=== PATIENT | female | born 1950 | race American Indian/Alaskan Native ===

== ENCOUNTER 2020-07-09 21:46 | Inpatient (IN) | payer MEDICARE ==
[2020-07-09] MEDS ORDERED: SODIUM CHLORIDE 0.9% 1000 ML 1,000 ML IV ONE (21:59)
--- NOTE | 2020-07-09 22:00 | Emergency Department Report ---
ED Altered Mental Status HPI - General Chief Complaint: Altered Mental Status Stated Complaint: MH EVALUATION PUI?: No Time Seen by Provider: 07/09/20 21:53 Source: patient, EMS Mode of arrival: Stretcher Limitations: Altered Mental Status - History of Present Illness Initial Comments: Patient is a 69-year-old female that brought to the emergency room by EMS for altered mental status. Patient was found talking to a fence at a gas station. At this time patient is alert and oriented x1. Patient is confused on place, time, situation. Patient states she is not sure why she is in the hospital. Patient states that she is in [facility]. Patient states she is not sure how she got to [place]. Patient states she is not in [place]. Patient denies pain. Patient denies any physical complaints. Patient denies recent travel. Patient denies recent international travel. Patient denies exposure to the novel coronavirus. Patient denies sick contacts. Patient denies fever and chills. Patient denies cough. Patient denies diarrhea. Patient denies coming in contact with anybody with symptoms of the novel coronavirus. Report received from EMS. EMS states that the patient was at a local gas station and talking to a fence and the patient states she was talking to her daughter. The patient has a [place] license. The police department have been notified by EMS and made aware of the situation and where the patient is from. Past medical history is unknown. Complaint: altered mental status -: unknown Severity: severe Consistency of Symptoms: constant Associated Symptoms: denies other symptoms - Related Data Allergies Allergy/AdvReac Type Severity Reaction Status Date / Time No Known Allergies Allergy Unverified 07/09/20 22:06 ED Review of Systems ROS: Stated complaint: MH EVALUATION Other details as noted in HPI Comment: Unobtainable due to pts medical conditions ED Past Medical Hx - Past Medical History Previous Medical History?: No Additional medical history: Unknown past medical history ED Physical Exam - General Limitations: Altered Mental Status General appearance: alert, in no apparent distress - Head Head exam: Present: atraumatic, normocephalic - Eye Eye exam: Present: normal appearance - ENT ENT exam: Present: mucous membranes moist - Neck Neck exam: Present: normal inspection - Respiratory Respiratory exam: Present: normal lung sounds bilaterally. Absent: respiratory distress - Cardiovascular Cardiovascular Exam: Present: regular rate, normal rhythm. Absent: systolic murmur, diastolic murmur, rubs, gallop - GI/Abdominal GI/Abdominal exam: Present: soft, normal bowel sounds - Extremities Exam Extremities exam: Present: normal inspection - Back Exam Back exam: Present: normal inspection - Neurological Exam Neurological exam: Present: alert, altered, CN II-XII intact, normal gait. Absent: abnormal gait, motor sensory deficit - Psychiatric Psychiatric exam: Present: normal affect, normal mood - Skin Skin exam: Present: warm, dry, intact, normal color. Absent: rash - Assessment Assessment Interval: Baseline - Level of Consciousness 1a. Level of Consciousness: alert/keenly responsive - LOC Questions 1b. LOC Questions: answers 1 question correctly - LOC Command 1c. LOC Commands: performs tasks correctly - Best Gaze 2. Best Gaze: normal - Visual 3. Visual: no visual loss - Facial Palsy 4. Facial Palsy: normal symmetrical movement - Motor Arm 5a. Motor Arm Left: no drift 5b. Motor Arm Right: no drift - Motor Leg 6a. Motor Leg Left: no drift 6b. Motor Leg Right: no drift - Limb Ataxia 7. Limb Ataxia: absent - Sensory 8. Sensory: normal - Best Language 9. Best Language: no aphasia - Dysarthria 10. Dysarthria: normal - Extinction and Inattention 11. Extinction/Inattention: no abnormality - Scoring Total Score: 1 Stroke Severity: Minor Stroke ED Course Vital Signs 07/09/20 07/09/20 07/09/20 21:53 22:56 23:00 Temperature 97.5 F L Pulse Rate 82 73 Respiratory 18 11 L Rate Blood Pressure 101/76 110/82 103/61 O2 Sat by Pulse 97 100 Oximetry 07/09/20 07/09/20 07/09/20 23:15 23:30 23:45 Temperature Pulse Rate 63 63 79 Respiratory 12 12 11 L Rate Blood Pressure 103/61 136/76 136/76 O2 Sat by Pulse 100 100 100 Oximetry 07/10/20 07/10/20 07/10/20 00:00 00:15 00:30 Temperature Pulse Rate 62 68 69 Respiratory 10 L 10 L 11 L Rate Blood Pressure 137/78 137/78 143/83 O2 Sat by Pulse 100 100 100 Oximetry 07/10/20 07/10/20 07/10/20 00:45 01:00 01:15 Temperature Pulse Rate 81 74 75 Respiratory 8 L 24 12 Rate Blood Pressure 158/94 137/83 132/77 O2 Sat by Pulse 100 99 100 Oximetry 07/10/20 07/10/20 07/10/20 01:30 01:45 02:00 Temperature Pulse Rate 70 62 60 Respiratory 14 12 11 L Rate Blood Pressure 141/82 132/78 146/83 O2 Sat by Pulse 99 100 100 Oximetry 07/10/20 07/10/20 07/10/20 02:15 02:31 02:45 Temperature Pulse Rate 61 64 63 Respiratory 11 L 12 11 L Rate Blood Pressure 146/83 125/71 122/72 O2 Sat by Pulse 100 100 100 Oximetry 07/10/20 03:00 Temperature Pulse Rate 60 Respiratory 12 Rate Blood Pressure 147/70 O2 Sat by Pulse 100 Oximetry - Reevaluation(s) Reevaluation #1: Initial evaluation done. Patient is now on the traffic monitor specialist. Labs have been ordered. We will try to get a hold of family for more information. 07/09/20 21:59 Reevaluation #2: Police bedside. Police state they are trying to find family members. Police state if they find the family will send him to the hospital to be with the patient. 07/09/20 22:05 Reevaluation #3: I discussed case with granddaughter. Granddaughter states that patient has been more confused and agitated. Granddaughter states that the patient has also been confused about where she is. Granddaughter states that the patient left home 2 days ago and has been lost for these 2 days. 07/10/20 00:30 Reevaluation #4: I discussed all results with patient and granddaughter. I discussed plan of care with patient and granddaughter. Patient and granddaughter agrees with plan of care and admission. Patient to be admitted to the hospitalist service. 07/10/20 01:05 - Consultations Consultation #1: Mental health evaluation consult placed. 07/10/20 01:04 Consultation #2: Hospitalist consulted for admission. Hospitalist to admit patient. 07/10/20 01:04 - Lab Data Result diagrams: 07/09/20 22:28 07/09/20 22:28 Lab Results 07/09/20 07/09/20 07/09/20 Range/Units 22:28 22:28 22:28 WBC 6.5 (4.5-11.0) K/mm3 RBC 4.49 (3.65-5.03) M/mm3 Hgb 12.3 (10.1-14.3) gm/dl Hct 37.0 (30.3-42.9) % MCV 82 (79-97) fl MCH 28 (28-32) pg MCHC 33 (30-34) % RDW 14.3 (13.2-15.2) % Plt Count 229 (140-440) K/mm3 Lymph % (Auto) 32.8 (13.4-35.0) % Aurora % (Auto) 8.6 H (0.0-7.3) % Eos % (Auto) 0.3 (0.0-4.3) % Baso % (Auto) 1.1 (0.0-1.8) % Lymph # (Auto) 2.1 (1.2-5.4) K/mm3 Aurora # (Auto) 0.6 (0.0-0.8) K/mm3 Eos # (Auto) 0.0 (0.0-0.4) K/mm3 Baso # (Auto) 0.1 (0.0-0.1) K/mm3 Seg Neutrophils % 57.2 (40.0-70.0) % Seg Neutrophils # 3.7 (1.8-7.7) K/mm3 Sodium 140 (137-145) mmol/L Potassium 3.3 L (3.6-5.0) mmol/L Chloride 99.6 (98-107) mmol/L Carbon Dioxide 26 (22-30) mmol/L Anion Gap 18 mmol/L BUN 11 (7-17) mg/dL Creatinine 0.7 (0.6-1.2) mg/dL Estimated GFR > 60 ml/min BUN/Creatinine Ratio 16 % Glucose 99 (65-100) mg/dL Lactic Acid 1.50 (0.7-2.0) mmol/L Calcium 9.9 (8.4-10.2) mg/dL Total Bilirubin 0.50 (0.1-1.2) mg/dL AST 22 (5-40) units/L ALT 11 (7-56) units/L Alkaline Phosphatase 69 (35-129) units/L Ammonia (25-60) umol/L Total Creatine Kinase (30-135) units/L Troponin T (0.00-0.029) ng/mL Total Protein 8.4 H (6.3-8.2) g/dL Albumin 4.6 (3.9-5) g/dL Albumin/Globulin Ratio 1.2 % Urine Color (Yellow) Urine Turbidity (Clear) Urine pH (5.0-7.0) Ur Specific [place] (1.003-1.030) Urine Protein (Negative) mg/dL Urine Glucose (UA) (Negative) mg/dL Urine Ketones (Negative) mg/dL Urine Blood (Negative) Urine Nitrite (Negative) Urine Bilirubin (Negative) Urine Urobilinogen (<2.0) mg/dL Ur Leukocyte Esterase (Negative) Urine WBC (Auto) (0.0-6.0) /HPF Urine RBC (Auto) (0.0-6.0) /HPF U Epithel Cells (Auto) (0-13.0) /HPF Urine Bacteria (Auto) (Negative) /HPF Urine Mucus /HPF Salicylates (2.8-20.0) mg/dL Urine Opiates Screen Urine Methadone Screen Acetaminophen (10.0-30.0) ug/mL Ur Barbiturates Screen Ur Phencyclidine Scrn Ur Amphetamines Screen U Benzodiazepines Scrn Urine Cocaine Screen U Marijuana (THC) Screen Drugs of Abuse Note Plasma/Serum Alcohol (0-0.07) % 07/09/20 07/09/20 07/09/20 Range/Units 22:28 22:28 22:28 WBC (4.5-11.0) K/mm3 RBC (3.65-5.03) M/mm3 Hgb (10.1-14.3) gm/dl Hct (30.3-42.9) % MCV (79-97) fl MCH (28-32) pg MCHC (30-34) % RDW (13.2-15.2) % Plt Count (140-440) K/mm3 Lymph % (Auto) (13.4-35.0) % Aurora % (Auto) (0.0-7.3) % Eos % (Auto) (0.0-4.3) % Baso % (Auto) (0.0-1.8) % Lymph # (Auto) (1.2-5.4) K/mm3 Aurora # (Auto) (0.0-0.8) K/mm3 Eos # (Auto) (0.0-0.4) K/mm3 Baso # (Auto) (0.0-0.1) K/mm3 Seg Neutrophils % (40.0-70.0) % Seg Neutrophils # (1.8-7.7) K/mm3 Sodium (137-145) mmol/L Potassium (3.6-5.0) mmol/L Chloride (98-107) mmol/L Carbon Dioxide (22-30) mmol/L Anion Gap mmol/L BUN (7-17) mg/dL Creatinine (0.6-1.2) mg/dL Estimated GFR ml/min BUN/Creatinine Ratio % Glucose (65-100) mg/dL Lactic Acid (0.7-2.0) mmol/L Calcium (8.4-10.2) mg/dL Total Bilirubin (0.1-1.2) mg/dL AST (5-40) units/L ALT (7-56) units/L Alkaline Phosphatase (35-129) units/L Ammonia 19.0 L (25-60) umol/L Total Creatine Kinase 269 H (30-135) units/L Troponin T < 0.010 (0.00-0.029) ng/mL Total Protein (6.3-8.2) g/dL Albumin (3.9-5) g/dL Albumin/Globulin Ratio % Urine Color (Yellow) Urine Turbidity (Clear) Urine pH (5.0-7.0) Ur Specific [place] (1.003-1.030) Urine Protein (Negative) mg/dL Urine Glucose (UA) (Negative) mg/dL Urine Ketones (Negative) mg/dL Urine Blood (Negative) Urine Nitrite (Negative) Urine Bilirubin (Negative) Urine Urobilinogen (<2.0) mg/dL Ur Leukocyte Esterase (Negative) Urine WBC (Auto) (0.0-6.0) /HPF Urine RBC (Auto) (0.0-6.0) /HPF U Epithel Cells (Auto) (0-13.0) /HPF Urine Bacteria (Auto) (Negative) /HPF Urine Mucus /HPF Salicylates (2.8-20.0) mg/dL Urine Opiates Screen Urine Methadone Screen Acetaminophen (10.0-30.0) ug/mL Ur Barbiturates Screen Ur Phencyclidine Scrn Ur Amphetamines Screen U Benzodiazepines Scrn Urine Cocaine Screen U Marijuana (THC) Screen Drugs of Abuse Note Plasma/Serum Alcohol < 0.01 (0-0.07) % 07/09/20 07/09/20 07/09/20 Range/Units 22:28 22:28 23:00 WBC (4.5-11.0) K/mm3 RBC (3.65-5.03) M/mm3 Hgb (10.1-14.3) gm/dl Hct (30.3-42.9) % MCV (79-97) fl MCH (28-32) pg MCHC (30-34) % RDW (13.2-15.2) % Plt Count (140-440) K/mm3 Lymph % (Auto) (13.4-35.0) % Aurora % (Auto) (0.0-7.3) % Eos % (Auto) (0.0-4.3) % Baso % (Auto) (0.0-1.8) % Lymph # (Auto) (1.2-5.4) K/mm3 Aurora # (Auto) (0.0-0.8) K/mm3 Eos # (Auto) (0.0-0.4) K/mm3 Baso # (Auto) (0.0-0.1) K/mm3 Seg Neutrophils % (40.0-70.0) % Seg Neutrophils # (1.8-7.7) K/mm3 Sodium (137-145) mmol/L Potassium (3.6-5.0) mmol/L Chloride (98-107) mmol/L Carbon Dioxide (22-30) mmol/L Anion Gap mmol/L BUN (7-17) mg/dL Creatinine (0.6-1.2) mg/dL Estimated GFR ml/min BUN/Creatinine Ratio % Glucose (65-100) mg/dL Lactic Acid (0.7-2.0) mmol/L Calcium (8.4-10.2) mg/dL Total Bilirubin (0.1-1.2) mg/dL AST (5-40) units/L ALT (7-56) units/L Alkaline Phosphatase (35-129) units/L Ammonia (25-60) umol/L Total Creatine Kinase (30-135) units/L Troponin T (0.00-0.029) ng/mL Total Protein (6.3-8.2) g/dL Albumin (3.9-5) g/dL Albumin/Globulin Ratio % Urine Color Yellow (Yellow) Urine Turbidity Slightly-cloudy (Clear) Urine pH 5.0 (5.0-7.0) Ur Specific [place] 1.021 (1.003-1.030) Urine Protein 30 mg/dl (Negative) mg/dL Urine Glucose (UA) Neg (Negative) mg/dL Urine Ketones 20 (Negative) mg/dL Urine Blood Sm (Negative) Urine Nitrite Neg (Negative) Urine Bilirubin Neg (Negative) Urine Urobilinogen < 2.0 (<2.0) mg/dL Ur Leukocyte Esterase Sm (Negative) Urine WBC (Auto) 8.0 H (0.0-6.0) /HPF Urine RBC (Auto) 3.0 (0.0-6.0) /HPF U Epithel Cells (Auto) 2.0 (0-13.0) /HPF Urine Bacteria (Auto) 2+ (Negative) /HPF Urine Mucus 2+ /HPF Salicylates < 0.3 L (2.8-20.0) mg/dL Urine Opiates Screen Urine Methadone Screen Acetaminophen 5.0 L (10.0-30.0) ug/mL Ur Barbiturates Screen Ur Phencyclidine Scrn Ur Amphetamines Screen U Benzodiazepines Scrn Urine Cocaine Screen U Marijuana (THC) Screen Drugs of Abuse Note Plasma/Serum Alcohol (0-0.07) % 07/09/20 Range/Units 23:00 WBC (4.5-11.0) K/mm3 RBC (3.65-5.03) M/mm3 Hgb (10.1-14.3) gm/dl Hct (30.3-42.9) % MCV (79-97) fl MCH (28-32) pg MCHC (30-34) % RDW (13.2-15.2) % Plt Count (140-440) K/mm3 Lymph % (Auto) (13.4-35.0) % Aurora % (Auto) (0.0-7.3) % Eos % (Auto) (0.0-4.3) % Baso % (Auto) (0.0-1.8) % Lymph # (Auto) (1.2-5.4) K/mm3 Aurora # (Auto) (0.0-0.8) K/mm3 Eos # (Auto) (0.0-0.4) K/mm3 Baso # (Auto) (0.0-0.1) K/mm3 Seg Neutrophils % (40.0-70.0) % Seg Neutrophils # (1.8-7.7) K/mm3 Sodium (137-145) mmol/L Potassium (3.6-5.0) mmol/L Chloride (98-107) mmol/L Carbon Dioxide (22-30) mmol/L Anion Gap mmol/L BUN (7-17) mg/dL Creatinine (0.6-1.2) mg/dL Estimated GFR ml/min BUN/Creatinine Ratio % Glucose (65-100) mg/dL Lactic Acid (0.7-2.0) mmol/L Calcium (8.4-10.2) mg/dL Total Bilirubin (0.1-1.2) mg/dL AST (5-40) units/L ALT (7-56) units/L Alkaline Phosphatase (35-129) units/L Ammonia (25-60) umol/L Total Creatine Kinase (30-135) units/L Troponin T (0.00-0.029) ng/mL Total Protein (6.3-8.2) g/dL Albumin (3.9-5) g/dL Albumin/Globulin Ratio % Urine Color (Yellow) Urine Turbidity (Clear) Urine pH (5.0-7.0) Ur Specific [place] (1.003-1.030) Urine Protein (Negative) mg/dL Urine Glucose (UA) (Negative) mg/dL Urine Ketones (Negative) mg/dL Urine Blood (Negative) Urine Nitrite (Negative) Urine Bilirubin (Negative) Urine Urobilinogen (<2.0) mg/dL Ur Leukocyte Esterase (Negative) Urine WBC (Auto) (0.0-6.0) /HPF Urine RBC (Auto) (0.0-6.0) /HPF U Epithel Cells (Auto) (0-13.0) /HPF Urine Bacteria (Auto) (Negative) /HPF Urine Mucus /HPF Salicylates (2.8-20.0) mg/dL Urine Opiates Screen Presumptive negative Urine Methadone Screen Presumptive negative Acetaminophen (10.0-30.0) ug/mL Ur Barbiturates Screen Presumptive negative Ur Phencyclidine Scrn Presumptive negative Ur Amphetamines Screen Presumptive negative U Benzodiazepines Scrn Presumptive negative Urine Cocaine Screen Presumptive negative U Marijuana (THC) Screen Presumptive negative Drugs of Abuse Note Disclamer Plasma/Serum Alcohol (0-0.07) % - EKG Data -: EKG Interpreted by Me EKG shows normal: sinus rhythm, axis, intervals, QRS complexes, ST-T waves Rate: normal - Radiology Data Radiology results: report reviewed, image reviewed interpreted by me: Chest x-ray: No pneumonia, no pneumothorax, no foreign body, no osseous findings, no acute findings CT head/brain wo con INDICATION: Altered Mental Status. TECHNIQUE: Routine CT head without contrast. All CT scans at this location are performed using CT dose reduction for ALARA by means of automated exposure control. COMPARISON: None. FINDINGS: BRAIN / INTRACRANIAL CONTENTS: No acute hemorrhage, mass effect, midline shift, or hydrocephalus. No appreciable acute large territorial or lacunar infarct. No chronic infarct. Age-commensurate ventricular and cisternal/sulcal prominence. ORBITS: No significant abnormality of visualized orbits. SINUSES / MASTOIDS: No significant abnormality of visualized sinuses and mastoid air cells. ADDITIONAL FINDINGS: None. IMPRESSION: 1. No acute intracranial abnormality. - Medical Decision Making Patient is a 69-year-old female that presents emergency room for altered mental status and wandering. Patient was brought in by EMS. The police were notified and the police were able to identify family. Family came to the hospital. Patient's family states that the patient has been gone for 2 days and had increased confusion and agitation prior to leaving the house. Patient was found by EMS talking toa fence. patient is alert and oriented x1. Patient had labs done which were consistent with an elevated CK and a UTI. Patient given fluids and antibiotics. Patient resting comfortably. Patient admitted to the hospital service for further evaluation treatment. Patient will most likely need a general psych consult. - Differential Diagnosis Dementia, confusion, altered mental status, UTI, dehydration Critical Care Time: Yes Critical care time in (mins) excluding proc time.: 35 Critical care attestation.: If time is entered above; I have spent that time in minutes in the direct care of this critically ill patient, excluding procedure time. Critical Care Time: 35 minutes ED Disposition Clinical Impression: Dehydration, Elevated CK, Confusion UTI (urinary tract infection) Qualifiers: Urinary tract infection type: acute cystitis Hematuria presence: with hematuria Qualified Code(s): N30.01 - Acute cystitis with hematuria Altered mental state Qualifiers: Altered mental status type: unspecified Qualified Code(s): R41.82 - Altered mental status, unspecified Disposition: 09 OP ADMIT IP TO THIS HOSP Is pt being admited?: Yes Does the pt Need Aspirin: No Condition: Critical Time of Disposition: 00:59
--- NOTE | 2020-07-09 22:50 | XRay Report ---
CHEST 1 VIEW 07/09/2020 9:40 PM INDICATION / CLINICAL INFORMATION: Altered Mental Status. COMPARISON: None available. FINDINGS: SUPPORT DEVICES: None. HEART / MEDIASTINUM: No significant abnormality. LUNGS / PLEURA: No significant pulmonary or pleural abnormality. No pneumothorax. ADDITIONAL FINDINGS: No significant additional findings. IMPRESSION: 1. No acute findings. Signer Name: Boston Bermudez MD Signed: 07/09/2020 10:46 PM Workstation Name: [id number]
[2020-07-09 22:51] LABS: Basophils # (Auto) 0.1 K/mm3 (0.0-0.1); Basophils % (Auto) 1.1 % (0.0-1.8); Eosinophils % (Auto) 0.3 % (0.0-4.3); Hemoglobin 12.3 gm/dl (10.1-14.3); Lymphocytes # (Auto) 2.1 K/mm3 (1.2-5.4); Lymphocytes % (Auto) 32.8 % (13.4-35.0); Mean Corpuscular HGB Conc 33 % (30-34); Mean Corpuscular Volume 82 fl (79-97); Monocytes # (Auto) 0.6 K/mm3 (0.0-0.8); Monocytes % (Auto) 8.6 % (0.0-7.3); Platelet Count 229 K/mm3 (140-440); Red Blood Count 4.49 M/mm3 (3.65-5.03); Red Cell Distribution Width 14.3 % (13.2-15.2)
[2020-07-09 23:12] LABS: Alanine Aminotransferase 11 units/L (7-56); Albumin 4.6 g/dL (3.9-5); Blood Urea Nitrogen 11 mg/dL (7-17); Calcium 9.9 mg/dL (8.4-10.2); Hemolysis Index 6
[2020-07-09 23:19] LABS: Bacteria,Urine 2+ /HPF (Negative); Bilirubin,Urine NEG (Negative); Blood,Urine SM (Negative); Color,Urine Yellow (Yellow); Mucus,Urine 2+ /HPF; Urobilinogen,Urine < 2.0 mg/dL (<2.0)
--- NOTE | 2020-07-09 23:19 | Cat Scan Report ---
CT head/brain wo con INDICATION: Altered Mental Status. TECHNIQUE: Routine CT head without contrast. All CT scans at this location are performed using CT dos e reduction for ALARA by means of automated exposure control. COMPARISON: None. FINDINGS: BRAIN / INTRACRANIAL CONTENTS: No acute hemorrhage, mass effect, midline shift, or hydrocephalus. No appreciable acute large territorial or lacunar infarct. No chronic infarct. Age-commensurate ventricu lar and cisternal/sulcal prominence. ORBITS: No significant abnormality of visualized orbits. SINUSES / MASTOIDS: No significant abnormality of visualized sinuses and mastoid air cells. ADDITIONAL FINDINGS: None. IMPRESSION: 1. No acute intracranial abnormality. Signer Name: Boston Bermudez MD Signed: 07/09/2020 11:15 PM Workstation Name: [id number]
[2020-07-09 23:20] LABS: BUN/Creatinine Ratio 16
[2020-07-09 23:25] LABS: Amphetamine Screen,Urine PRESUMPTIVE NEGATIVE; Benzodiazepines Screen,Urine PRESUMPTIVE NEGATIVE; Cannabinoid Screen,Urine PRESUMPTIVE NEGATIVE; Cocaine Screen,Urine PRESUMPTIVE NEGATIVE; Methadone Screen,Urine PRESUMPTIVE NEGATIVE; Opiate Screen,Urine PRESUMPTIVE NEGATIVE
[2020-07-10] MEDS ORDERED: cefTRIAXone/NS 1 GM/50 ML 1 GM/50 ML BAG IV ONE ×2 (00:57→02:17)
[2020-07-10] MEDS ORDERED: SODIUM CHLORIDE 0.9% 1000 ML 1,000 ML IV ONE (00:58)
[2020-07-10] MEDS ORDERED: ACETAMINOPHEN 325 MG TAB PO PRN (01:36)
[2020-07-10] MEDS ORDERED: MAGNESIUM HYDROXIDE (MOM) ORAL LIQD UDC PO PRN (01:36)
[2020-07-10] MEDS ORDERED: ONDANSETRON 4 MG/2 ML INJ IV PRN (01:36)
[2020-07-10] MEDS ORDERED: POTASSIUM CHLORIDE 10 MEQ 10 MEQ/100 ML BAG IV ONE ×2 (01:44→03:27)
--- NOTE | 2020-07-10 01:45 | History and Physical Report ---
History of Present Illness Date of examination: 07/10/20 Date of admission: 07/10/2020 Chief complaint: Altered Mental Status History of present illness: 69-year-old -[place] female brought to the emergency room today by EMS for altered mental status. Patient was said to have been found at a gas station just talking to the fence. Patient could not give any good history as she is only alert and oriented x1. She denies any fever or chills, no chest pain or shortness of breath, no nausea vomiting and no diarrhea. She believes that she is in [place] and not sure of how she got to [place]. She denies any complaints today. Evaluation in the emergency room reveals slightly elevated CK level, mild hypokalemia, urinary tract infection and dehydration. Patient has been placed on empiric IV antibiotics for UTI and also commenced on IV fluid for dehydration. CT scan of the head is unremarkable. Past History Past Medical History: other (Unkown) Past Surgical History: Other (Unkown) Social history: other (Unkown) Family history: other (Unkown) Medications and Allergies Allergies Allergy/AdvReac Type Severity Reaction Status Date / Time No Known Allergies Allergy Unverified 07/09/20 22:06 Active Meds: Active Medications Sodium Chloride (Nacl 0.9% 1000 Ml) 1,000 mls @ 250 mls/hr IV ONCE ONE Stop: 07/10/20 04:57 Review of Systems ROS unobtainable: due to mental status Exam - Constitutional Vitals: Temp Pulse Resp BP Pulse Ox 97.5 F L 69 11 L 143/83 100 07/09/20 21:53 07/10/20 00:30 07/10/20 00:30 07/10/20 00:30 07/10/20 00:30 General appearance: Present: no acute distress, well-nourished, other (Dry oral mucosa) - EENT Eyes: Present: PERRL, EOM intact. Absent: scleral icterus ENT: hearing intact, clear oral mucosa, dentition normal - Neck Neck: Present: supple, normal ROM - Respiratory Respiratory effort: normal Respiratory: bilateral: CTA - Cardiovascular Rhythm: regular Heart Sounds: Present: S1 & S2. Absent: gallop, systolic murmur, diastolic mur mur, rub - Extremities Extremities: no ischemia, pulses intact, pulses symmetrical, No edema, Full ROM Peripheral Pulses: within normal limits - Abdominal General gastrointestinal: Present: soft, non-tender, non-distended, normal bowel sounds. Absent: mass - Integumentary Integumentary: Present: clear, warm, dry - Musculoskeletal Musculoskeletal: strength equal bilaterally - Psychiatric Psychiatric: appropriate mood/affect, cooperative, other (Confused) - Neurologic Neurologic: CNII-XII intact, no focal deficits, moves all extremities HEART Score - HEART Score Troponin: Troponin T < 0.010 ng/mL (0.00-0.029) 07/09/20: Results - Labs CBC & Chem 7: 07/09/20 22:28 07/09/20 22: Labs: Abnormal lab results 07/09/20 07/09/20 07/09/20 Range/Units 22:28 22:28 22:28 [place] % (Auto) 8.6 H (0.0-7.3) % Potassium 3.3 L (3.6-5.0) mmol/L Ammonia 19.0 L (25-60) umol/L Total Creatine Kinase (30-135) units/L Total Protein 8.4 H (6.3-8.2) g/dL Urine WBC (Auto) (0.0-6.0) /HPF Salicylates (2.8-20.0) mg/dL Acetaminophen (10.0-30.0) ug/mL 07/09/20 07/09/20 07/09/20 Range/Units 22:28 22:28 22:28 [place] % (Auto) (0.0-7.3) % Potassium (3.6-5.0) mmol/L Ammonia (25-60) umol/L Total Creatine Kinase 269 H (30-135) units/L Total Protein (6.3-8.2) g/dL Urine WBC (Auto) (0.0-6.0) /HPF Salicylates < 0.3 L (2.8-20.0) mg/dL Acetaminophen 5.0 L (10.0-30.0) ug/mL 07/09/20 Range/Units 23:00 [place] % (Auto) (0.0-7.3) % Potassium (3.6-5.0) mmol/L Ammonia (25-60) umol/L Total Creatine Kinase (30-135) units/L Total Protein (6.3-8.2) g/dL Urine WBC (Auto) 8.0 H (0.0-6.0) /HPF Salicylates (2.8-20.0) mg/dL Acetaminophen (10.0-30.0) ug/mL Assessment and Plan - Patient Problems (1) Altered mental state Current Visit: Yes Status: Acute Qualifiers: Altered mental status type: unspecified Qualified Code(s): R41.82 - Altered mental status, unspecified Plan to address problem: Etiology is unclear. Possibly secondary to the underlying dehydration and UTI. We will monitor mental status. (2) Dehydration Current Visit: Yes Status: Acute Plan to address problem: We will continue on IV fluid and monitor BUN and creatinine. (3) Elevated CK Current Visit: Yes Status: Acute Plan to address problem: We will continue IV fluid and continue to monitor creatinine kinase. (4) UTI (urinary tract infection) Current Visit: Yes Status: Acute Qualifiers: Urinary tract infection type: acute cystitis Hematuria presence: with hematuria Qualified Code(s): N30.01 - Acute cystitis with hematuria Plan to address problem: Patient placed on IV Rocephin (5) DVT prophylaxis Current Visit: Yes Status: Acute Plan to address problem: Patient placed on subcutaneous heparin. (6) Full code status Current Visit: Yes Status: Acute
[2020-07-10] MEDS ORDERED: SODIUM CHLORIDE 0.9% 1000 ML 1,000 ML ONE (02:44)
[2020-07-10] MEDS: HEPARIN 5,000 UNIT/1 ML VIAL SUB-Q SCH ×3 (06:28→22:04)
[2020-07-10] MEDS: cefTRIAXone/NS 1 GM/50 ML 1 GM/50 ML BAG IV SCH (10:29)
[2020-07-10] MEDS: SODIUM CHLORIDE 0.9% 1000 ML 1,000 ML IV SCH ×2 (10:29→19:25)
--- NOTE | 2020-07-10 14:25 | Event Note ---
Date: 07/10/20 Patient seen and examined, vitals noted 69-year-old -[place] female brought to the emergency room by EMS for altered mental status. Evaluation in the emergency room reveals slightly elevated CK level, mild hypokalemia, urinary tract infection and dehydration. Patient has been placed on empiric IV antibiotics for UTI and also commenced on IV fluid for dehydration. CT scan of the head is unremarkable. will monitor clinically, psych consult has placed if clinically stable, possible d/c tomorrow
[2020-07-11 05:11] LABS: Basophils % (Auto) 0.5 % (0.0-1.8); Eosinophils # (Auto) 0.2 K/mm3 (0.0-0.4); Eosinophils % (Auto) 2.7 % (0.0-4.3); Hematocrit 34.5 % (30.3-42.9); Hemoglobin 11.3 gm/dl (10.1-14.3); Lymphocytes # (Auto) 3.2 K/mm3 (1.2-5.4); Mean Corpuscular HGB Conc 33 % (30-34); Mean Corpuscular Volume 83 fl (79-97); Monocytes # (Auto) 0.3 K/mm3 (0.0-0.8); Monocytes % (Auto) 5.7 % (0.0-7.3); Red Blood Count 4.16 M/mm3 (3.65-5.03); Red Cell Distribution Width 14.5 % (13.2-15.2)
[2020-07-11 05:16] LABS: INR 0.94 (0.87-1.13); Platelet Count 133 K/mm3 (140-440)
[2020-07-11] MEDS: HEPARIN 5,000 UNIT/1 ML VIAL SUB-Q SCH ×4 (05:24→22:53)
[2020-07-11] MEDS: SODIUM CHLORIDE 0.9% 1000 ML 1,000 ML IV SCH (05:28)
[2020-07-11 05:30] LABS: Blood Urea Nitrogen 10 mg/dL (7-17); Calcium 8.4 mg/dL (8.4-10.2); Hemolysis Index 30
[2020-07-11 05:34] LABS: BUN/Creatinine Ratio 20
[2020-07-11] MEDS: cefTRIAXone/NS 1 GM/50 ML 1 GM/50 ML BAG IV SCH (09:31)
--- NOTE | 2020-07-11 12:21 | Consultation ---
History of Present Illness - Reason for Consult Consult date: 07/11/20 Reason for consult: MHE Requesting physician: EDYTA BYRNES - Chief Complaint Chief complaint: Altered Mental Status - History of Present Psychiatric Illness Per ED Provider: Patient is a 69-year-old female that brought to the emergency room by EMS for altered mental status. Patient was found talking to a fence at a gas station. At this time patient is alert and oriented x1. Patient is confused on place, time, situation. Patient states she is not sure why she is in the hospital. Patient states that she is in [facility]. Patient states she is not sure how she got to [place]. Patient states she is not in [place]. Patient denies pain. Patient denies any physical complaints. Patient denies recent travel. Patient denies recent international travel. Patient denies exposure to the novel coronavirus. Patient denies sick contacts. Patient denies fever and chills. Patient denies cough. Patient denies diarrhea. Patient denies coming in contact with anybody with symptoms of the novel coronavirus. Report received from EMS. EMS states that the patient was at a local gas station and talking to a fence and the patient states she was talking to her daughter. The patient has a [place] license. The police department have been notified by EMS and made aware of the situation and where the patient is from. Past medical history is unknown. PSYCH HPI Patient is a 69 year old Female who presented to the ED for AMS. Patient says she does not know where she is but thinks its a hospital, says she does not have psychiatric diagnosis, but the only one she has was just so she could get money for disability and she laughed, saying she wont tell me so I dont get her arrested. Patient then picked up the TV remote speaker, which was producing TV audio and tried talking to it like she was receiving a phone, and even talked back to the person not knowing its a TV speaker. Patient says she is in the hospital because of her head and kept laughing PAST PSYCHIATRIC HISTORY Diagnoses: Suicide attempts or Self-harm behavior: Prior psychiatric hospitalizations: Substance Abuse history: Previous psychiatric medications tried: Outpatient treatment: PAST MEDICAL HISTORY: na Family Psychiatric History: None reported or documented SOCIAL HISTORY Marital Status: Single Living Arrangements: with grand daughter Employment Status: on SSI Access to guns/weapons: none reported Education: High school History of Abuse: none reported Legal History: reported REVIEW OF SYSTEMS ROS cannot be reliably obtained from the patient due to her confusion and somnolence. MENTAL STATUS EXAMINATION General Appearance and Behavior: Age appropriate, good hygiene, wearing appropriate clothes, lying in bed, good eye contact, cooperative polite with questioning. Cooperation: Participating but Withdrawn, Psychomotor Behavior: unremarkable and within normal limits Mood: Good, Affect and affective range: congruent with mood Thought Process: e, Illogical, and Loose associations Thought Content: Illogical, Speech: Normal volume, Regular rate and rhythm Intellectual Functioning: fair Suicidal Ideation: Denies SI Homicidal Ideation: Denies HI/ Impulse Control: Impaired Insight and Judgment: Normal insight and judgment, Limited insight and judgment, Impaired Memory: impaired Attention: d Divided attention impaired Orientation: Alert, confused, and demented Diagnoses: Assessment and Plan - Psychiatric problem (1) Dementia with behavioral disturbance Current Visit: Yes Status: Acute Treatment Plan I spoke to patients grand daughter, she reports patient was recently diagnozed w jossy Alzheimers by her doctor, medication was just started last week before she wandered away. MEDICATIONS: Started on Medications Risks, benefits and alternatives of medications discussed with the patient, questions answered and consent obtained from patient. PSYCHOTHERAPY: Supportive psychotherapy provided MEDICAL: Per primary team DELIRIUM PRECAUTIONS: Please re-orient patient frequently, keep lights on during the day, and minimize benzodiazepines and opiates as these medications could worsen patient's confusion. 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 Will Need covid testing LEGAL STATUS: 1013 FOLLOW-UP: Will follow Thank you for the consult. Please contact with any questions and/or concerns. Medications and Allergies Allergies Allergy/AdvReac Type Severity Reaction Status Date / Time No Known Allergies Allergy Unverified 07/09/20 22:06 Active Meds: Active Medications Acetaminophen (Tylenol) 650 mg PO Q4H PRN PRN Reason: Pain MILD(1-3)/Fever >100.5/CARDOZO Heparin Sodium (Porcine) (Heparin) 5,000 unit SUB-Q Q8HR CLAU Last Admin: 07/11/20 05:29 Dose: Not Given Documented by: Sodium Chloride (Nacl 0.9% 1000 Ml) 1,000 mls @ 125 mls/hr IV DIRECT CLAU Last Admin: 07/11/20 05:28 Dose: 125 mls/hr Documented by: Ceftriaxone Sodium (Rocephin/Ns 1 Gm/50 Ml) 1 gm in 50 mls @ 100 mls/hr IV Q24HR [facility]; Protocol Last Admin: 07/11/20 09:31 Dose: 100 mls/hr Documented by: Magnesium Hydroxide (Milk Of Magnesia) 30 ml PO Q4H PRN PRN Reason: Constipation Ondansetron HCl (Zofran) 4 mg IV Q8H PRN PRN Reason: Nausea And Vomiting Sodium Chloride (Sodium Chloride Flush Syringe 10 Ml) 10 ml IV BID [facility] Last Admin: 07/11/20 09:32 Dose: Not Given Documented by: Sodium Chloride (Sodium Chloride Flush Syringe 10 Ml) 10 ml IV PRN PRN PRN Reason: LINE FLUSH Mental Status Exam - Vital signs Last Vital Signs Temp 98.3 F 07/11/20 05:18 Pulse 64 07/11/20 05:18 Resp 18 07/11/20 05:18 BP 104/72 07/11/20 05:18 Pulse Ox 99 07/11/20 05:18 Results Result Diagrams: 07/11/20 04:18 07/11/20 04:18 Abnormal lab results 07/11/20 07/11/20 Range/Units 04:18 04:18 MCH 27 L (28-32) pg Plt Count 133 L (140-440) K/mm3 Lymph % (Auto) 55.0 H (13.4-35.0) % Seg Neutrophils % 36.1 L (40.0-70.0) % Chloride 111.3 H (98-107) mmol/L Creatinine 0.5 L (0.6-1.2) mg/dL All other labs normal. Assessment and Plan - Psychiatric problem (1) Dementia with behavioral disturbance Current Visit: Yes Status: Acute
[2020-07-11] MEDS: risperiDONE 0.25 MG TAB PO SCH ×2 (14:50→22:53)
--- NOTE | 2020-07-11 18:44 | Progress Note ---
Assessment and Plan -- Acute metabolic encephalopathy Possibly secondary to the underlying dehydration and UTI with dementia. We will monitor mental status. -- Dehydration We will continue on IV fluid and monitor BUN and creatinine. -- Elevated CPK, continue IV fluid and CPK trending down --hypokalemia, resolved - UTI (urinary tract infection) Patient placed on IV Rocephin --Dementia with behavioral disturbance Psych consulted and recommended inpt psych admission sitter in place -- DVT prophylaxis Patient placed on subcutaneous heparin. -- Full code status Brief History: 69-year-old -[place] female brought to the emergency room by EMS for altered mental status. Evaluation in the emergency room reveals slightly elevated CK level, mild hypokalemia, urinary tract infection and dehydration. Patient has been placed on empiric IV antibiotics for UTI and also commenced on IV fluid for dehydration. CT scan of the head is unremarkable. will monitor clinically, psych consult has placed. 07/11: clinically stable. Psych recommended for inpt psych admission. Need covid testing for inpt psych admission Subjective Date of service: 07/11/20 Interval history: Patient seen and examined. Medical records and medication list reviewed. No acute event overnight noted by the RN. Patient denies any chest pain or difficulty breathing. Patient is tolerating diet. Discussed plan of care at bedside with patient. Objective - Constitutional Vitals: Vital Signs - 12hr 07/11/20 07/11/20 10:37 16:25 Temperature 98.8 F 98.9 F Pulse Rate 67 60 Respiratory 16 18 Rate Blood Pressure 117/50 106/62 O2 Sat by Pulse 100 98 Oximetry General appearance: Present: no acute distress, well-nourished - EENT Eyes: PERRL, EOM intact ENT: hearing intact, clear oral mucosa Ears: bilateral: normal - Neck Neck: supple, normal ROM - Respiratory Respiratory effort: normal Respiratory: bilateral: CTA - Cardiovascular Rhythm: regular Heart Sounds: Present: S1 & S2. Absent: gallop, rub Extremities: pulses intact, No edema, normal color, Full ROM - Gastrointestinal General gastrointestinal: Present: soft, non-tender, non-distended, normal bowel sounds - Integumentary Integumentary: clear, warm, dry - Musculoskeletal Musculoskeletal: 1, strength equal bilaterally - Neurologic Neurologic: moves all extremities - Psychiatric Psychiatric: memory intact, appropriate mood/affect, intact judgment & insight - Labs CBC & Chem 7: 07/11/20 04:18 07/11/20 04:18 Labs: Abnormal lab results 07/11/20 07/11/20 Range/Units 04:18 04:18 MCH 27 L (28-32) pg Plt Count 133 L (140-440) K/mm3 Lymph % (Auto) 55.0 H (13.4-35.0) % Seg Neutrophils % 36.1 L (40.0-70.0) % Chloride 111.3 H (98-107) mmol/L Creatinine 0.5 L (0.6-1.2) mg/dL - Imaging and cardiology Chest x-ray: report reviewed CT Scan - head: report reviewed HEART Score - HEART Score Troponin: Troponin T < 0.010 ng/mL (0.00-0.029) 07/09/20 22:28
[2020-07-11] MEDS: LORazepam 2 MG/ML VIAL IM PRN ×3 (21:13→22:58)
[2020-07-11] MEDS ORDERED: MIRTAZAPINE 15 MG TAB PO SCH (22:00)
[2020-07-11] MEDS ORDERED: DONEPEZIL 5 MG TAB PO SCH (22:00)
[2020-07-12] MEDS: HEPARIN 5,000 UNIT/1 ML VIAL SUB-Q SCH ×2 (06:25→14:21)
[2020-07-12] MEDS ORDERED: risperiDONE 0.25 MG TAB PO SCH (11:07)
--- NOTE | 2020-07-12 11:10 | Progress Note ---
Subjective - Reason for Consult Consult date: 07/12/20 Reason for consult: MHE Requesting physician: EDYTA BYRNES - Chief Complaint Chief complaint: Psych Progress Patient in deep sleep, was recently medicated due to combative behavior per bedside sitter REVIEW OF SYSTEMS ROS cannot be reliably obtained from the patient due to her confusion and somnolence. MENTAL STATUS EXAMINATION General Appearance and Behavior: Age appropriate, good hygiene, wearing appropriate clothes, lying in bed, good eye contact, cooperative polite with questioning. Cooperation: Participating but Withdrawn, Psychomotor Behavior: unremarkable and within normal limits Mood: Good, Affect and affective range: congruent with mood Thought Process: e, Illogical, and Loose associations Thought Content: Illogical, Speech: Normal volume, Regular rate and rhythm Intellectual Functioning: fair Suicidal Ideation: Denies SI Homicidal Ideation: Denies HI/ Impulse Control: Impaired Insight and Judgment: Impaired Memory: impaired Attention: d Divided attention impaired Orientation: Alert, confused, and demented Diagnoses: Assessment and Plan - Psychiatric problem (1) Dementia with behavioral disturbance Current Visit: Yes Status: Acute Treatment Plan I spoke to patients grand daughter, she reports patient was recently diagnozed with Alzheimers by her doctor, medication was just started last week before she wandered away. MEDICATIONS: Started on Medications Risks, benefits and alternatives of medications discussed with the patient, questions answered and consent obtained from patient. PSYCHOTHERAPY: Supportive psychotherapy provided MEDICAL: Per primary team DELIRIUM PRECAUTIONS: Please re-orient patient frequently, keep lights on during the day, and minimize benzodiazepines and opiates as these medications could worsen patient's confusion. 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 Will Need covid testing LEGAL STATUS: 1013 FOLLOW-UP: Will follow Thank you for the consult. Please contact with any questions and/or concerns. Altered Mental Status Mental Status Exam - Vital signs Last Vital Signs Temp 98.3 F 07/12/20 05:42 Pulse 62 07/12/20 05:42 Resp 16 07/12/20 05:42 BP 126/74 07/12/20 05:42 Pulse Ox 100 07/12/20 05:42 Assessment and Plan - Patient Problems (1) Dementia with behavioral disturbance Current Visit: Yes Status: Acute
[2020-07-12] MEDS ORDERED: ZIPRASIDONE MESYLATE 20 MG VIAL IM SCH (12:00)
[2020-07-12] MEDS ORDERED: risperiDONE 1 MG TAB PO SCH (12:00)
--- NOTE | 2020-07-12 13:41 | Discharge Summary ---
Providers - Providers Date of Admission: 07/10/20 01:01 Date of discharge: 07/12/20 Attending physician: EDYTA BYRNES 07/10/20 14:09 Consult to Mental Health [CONS] Routine Reason For Exam: delirium Physical Therapy Evaluation and Treat [CONS] Routine Comment: Reason For Exam: placement Primary care physician: MARKET DEVELOPER Hospitalization Condition: Critical Hospital course: 69-year-old -[place] female brought to the emergency room by EMS for altered mental status. Evaluation in the emergency room reveals slightly elevated CK level, mild hypokalemia, urinary tract infection and dehydration. Patient has been placed on empiric IV antibiotics for UTI and also commenced on IV fluid for dehydration. CT scan of the head is unremarkable. will monitor clinically, psych consult has placed. 07/11: clinically stable. Psych recommended for inpt psych admission. Need covid testing for inpt psych admission. Discharge diagnosis: -- Acute metabolic encephalopathy Possibly secondary to the underlying dehydration and UTI with dementia. We will monitor mental status. -- Dehydration We will continue on IV fluid and monitor BUN and creatinine. -- Elevated CPK, continue IV fluid and CPK trending down --hypokalemia, resolved - UTI (urinary tract infection) Patient placed on IV Rocephin --Dementia with behavioral disturbance Psych consulted and recommended inpt psych admission sitter in place -- DVT prophylaxis Patient placed on subcutaneous heparin. -- Full code status Disposition: DC[facility] Time spent for discharge: 34 minutes Core Measure Documentation - Palliative Care Palliative Care/ Comfort Measures: Not Applicable - Core Measures Any of the following diagnoses?: none Exam - Constitutional Vitals: Temp Pulse Resp BP Pulse Ox 97.4 F L 54 L 17 157/87 98 07/12/20 12:12 07/12/20 12:12 07/12/20 12:12 07/12/20 12:12 07/12/20 12:12 General appearance: Present: no acute distress, well-nourished - EENT Eyes: Present: PERRL ENT: hearing intact, clear oral mucosa - Neck Neck: Present: supple, normal ROM - Respiratory Respiratory effort: normal Respiratory: bilateral: CTA - Cardiovascular Heart Sounds: Present: S1 & S2. Absent: rub, click - Extremities Extremities: pulses symmetrical, No edema Peripheral Pulses: within normal limits - Abdominal General gastrointestinal: Present: soft, non-tender, non-distended, normal bowel sounds - Integumentary Integumentary: Present: clear, warm, dry - Musculoskeletal Musculoskeletal: gait normal, strength equal bilaterally - Psychiatric Psychiatric: appropriate mood/affect, no memory intact - Neurologic Neurologic: CNII-XII intact, moves all extremities Plan Activity: advance as tolerated Weight Bearing Status: Non-Weight Bearing Diet: low fat Follow up with: PRIMARY CARE, [Primary Care Provider] - 3-5 Days
[2020-07-12] MEDS: cefTRIAXone/NS 1 GM/50 ML 1 GM/50 ML BAG IV SCH (14:21)
[2020-07-12 16:49] VITALS: BP 119/67
== END 2020-07-12 18:12 | disposition other institution (70) | DRG 689 ==
LOC: ED 21:46 → EEVIPCON 07-10 01:01 → OBSVTOIN 07-10 01:01 → 3A 07-10 01:01
PROVIDERS: ADMIT Internal Medicine Geriatric Medicine; ATTEND Internal Medicine
DX: N39.0 Urinary tract infection, site not specified (principal); G93.41 Metabolic encephalopathy; F03.91 Unspecified dementia, unspecified severity, with behavioral disturbance; E86.0 Dehydration; E87.6 Hypokalemia; Z20.828 Contact with and (suspected) exposure to other viral communicable diseases
CPT/HCPCS: 36415; 70450; 71045; 80048; 80053; 80307; 80320; 81001; 82140; 82550; 84484; 85025; 85610; 93005; 96365; 96366; 96367; 96375; G0378; G0480; J0696; J1644; J2060; J3480; J7030; U0003-CS

== ENCOUNTER 2020-07-25 06:18 | Emergency (ER) | payer MEDICARE ==
--- NOTE | 2020-07-25 06:58 | Emergency Department Report ---
ED Psych HPI - General Chief Complaint: Altered Mental Status Stated Complaint: AMS Time Seen by Provider: 07/25/20 06:27 Source: EMS Mode of arrival: Wheelchair - History of Present Illness Initial Comments: Patient is 69 years old female with history of dementia and behavioral disturbances. Patient brought to the emergency room via EMS from a local [employer] station parking lot after patient was found wandering around by a stranger who called 911. Patient is calm and in no acute distress. Patient is refusing to answer questions. I reviewed patient medical history and patient was admitted to geriatric inpatient unit approximately 2 weeks ago for the same presentation. MD Complaint: altered mental status - Related Data Previous Rx's Medication Instructions Recorded Last Taken Type Mirtazapine [Remeron 15mg TAB] 15 mg PO QHS tablet 07/12/20 Unknown Rx donepeziL [Aricept] 5 mg PO QHS tablet 07/12/20 Unknown Rx risperiDONE [RisperDAL] 1 mg PO BID tablet 07/12/20 Unknown Rx [place]-3 Fatty Acids/Fish Oil [Fish 2,000 mg PO BID #60 capsule 07/17/20 Unknown Rx Oil] Pravastatin [Pravachol] 40 mg PO QHS tablet 07/17/20 Unknown Rx Valproic Acid [Depakene] 250 mg PO BID #60 capsule 07/17/20 Unknown Rx donepeziL [Aricept] 5 mg PO QHS #30 tablet 07/17/20 Unknown Rx risperiDONE [RisperDAL] 2 mg PO BID #60 tablet 07/17/20 Unknown Rx traZODone [Desyrel] 50 mg PO QHS #30 tablet 07/17/20 Unknown Rx Allergies Allergy/AdvReac Type Severity Reaction Status Date / Time No Known Allergies Allergy Unverified 07/09/20 22:06 ED Review of Systems ROS: Stated complaint: AMS Other details as noted in HPI Comment: All other systems reviewed and negative Constitutional: denies: chills, fever Cardiovascular: denies: chest pain Gastrointestinal: denies: abdominal pain, nausea, vomiting Musculoskeletal: denies: back pain Neurological: confusion. denies: headache, weakness, numbness, paresthesias ED Past Medical Hx - Past Medical History Hx Renal Disease: Yes (UTI) Hx Dementia: Yes (Confusion, AMS) Additional medical history: Unknown past medical history - Social History Smoking Status: Never Smoker - Medications Home Medications: Home Medications Medication Instructions Recorded Confirmed Last Taken Type Mirtazapine [Remeron 15mg TAB] 15 mg PO QHS tablet 07/12/20 07/12/20 Unknown Rx donepeziL [Aricept] 5 mg PO QHS tablet 07/12/20 07/12/20 Unknown Rx risperiDONE [RisperDAL] 1 mg PO BID tablet 07/12/20 07/12/20 Unknown Rx [place]-3 Fatty Acids/Fish Oil [Fish 2,000 mg PO BID #60 capsule 07/17/20 Unknown Rx Oil] Pravastatin [Pravachol] 40 mg PO QHS tablet 07/17/20 Unknown Rx Valproic Acid [Depakene] 250 mg PO BID #60 capsule 07/17/20 Unknown Rx donepeziL [Aricept] 5 mg PO QHS #30 tablet 07/17/20 Unknown Rx risperiDONE [RisperDAL] 2 mg PO BID #60 tablet 07/17/20 Unknown Rx traZODone [Desyrel] 50 mg PO QHS #30 tablet 07/17/20 Unknown Rx ED Physical Exam - General Limitations: No Limitations General appearance: alert, in no apparent distress - Head Head exam: Present: atraumatic, normocephalic, normal inspection - Eye Eye exam: Present: normal appearance - ENT ENT exam: Present: normal exam, normal orophraynx, mucous membranes moist - Neck Neck exam: Present: normal inspection. Absent: tenderness, meningismus - Respiratory Respiratory exam: Present: normal lung sounds bilaterally - Cardiovascular Cardiovascular Exam: Present: regular rate, normal rhythm, normal heart sounds - GI/Abdominal GI/Abdominal exam: Present: soft, normal bowel sounds. Absent: distended, tenderness, guarding, rebound, rigid, organomegaly, mass, bruit, pulsatile mass, hernia - Extremities Exam Extremities exam: Present: normal inspection, full ROM, normal capillary refill. Absent: calf tenderness - Back Exam Back exam: Present: normal inspection, CVA tenderness (R), CVA tenderness (L) - Neurological Exam Neurological exam: Present: alert, altered, CN II-XII intact, normal gait. Absent: motor sensory deficit - Psychiatric Psychiatric exam: Present: flat affect. Absent: agitated - Skin Skin exam: Present: warm, dry, intact ED Course Vital Signs 07/25/20 07/25/20 07/25/20 06:52 07:15 08:00 Pulse Rate 70 70 70 Respiratory 16 11 L Rate Blood Pressure 122/56 115/51 Blood Pressure [Left] O2 Sat by Pulse 100 100 Oximetry 07/25/20 07/25/20 07/25/20 08:16 08:30 08:46 Pulse Rate 73 73 75 Respiratory 14 10 L 12 Rate Blood Pressure 120/36 120/36 120/36 Blood Pressure [Left] O2 Sat by Pulse 99 100 100 Oximetry 07/25/20 07/25/20 07/25/20 08:52 09:00 09:16 Pulse Rate 75 83 Respiratory 16 12 13 Rate Blood Pressure 95/44 95/44 Blood Pressure [Left] O2 Sat by Pulse 96 100 100 Oximetry 07/25/20 07/25/20 07/25/20 09:30 09:46 10:00 Pulse Rate 78 71 75 Respiratory 11 L 12 10 L Rate Blood Pressure 95/44 95/44 99/54 Blood Pressure [Left] O2 Sat by Pulse 100 100 99 Oximetry 07/25/20 07/25/20 07/25/20 10:16 10:30 10:46 Pulse Rate 74 70 75 Respiratory 14 9 L 12 Rate Blood Pressure 99/54 99/54 99/54 Blood Pressure [Left] O2 Sat by Pulse 99 100 100 Oximetry 07/25/20 07/25/20 07/25/20 11:00 11:16 11:30 Pulse Rate 88 113 H 74 Respiratory 10 L 10 L 8 L Rate Blood Pressure 108/61 108/61 108/61 Blood Pressure [Left] O2 Sat by Pulse 100 100 99 Oximetry 07/25/20 07/25/20 07/25/20 11:46 12:00 12:16 Pulse Rate 114 H 68 95 H Respiratory 15 10 L 15 Rate Blood Pressure 108/61 115/52 115/52 Blood Pressure [Left] O2 Sat by Pulse 99 100 Oximetry 07/25/20 07/25/20 07/25/20 12:30 12:46 13:00 Pulse Rate 81 103 H Respiratory 12 15 13 Rate Blood Pressure 115/52 115/52 115/52 Blood Pressure [Left] O2 Sat by Pulse 99 99 98 Oximetry 07/25/20 07/25/20 07/25/20 13:16 14:16 14:30 Pulse Rate 95 H 94 H Respiratory 14 14 11 L Rate Blood Pressure 88/64 88/64 88/64 Blood Pressure [Left] O2 Sat by Pulse 99 99 Oximetry 07/25/20 07/25/20 07/25/20 14:46 15:00 15:16 Pulse Rate 81 89 78 Respiratory 12 12 11 L Rate Blood Pressure 88/64 88/64 108/60 Blood Pressure [Left] O2 Sat by Pulse 99 99 100 Oximetry 07/25/20 07/25/20 07/25/20 15:30 15:46 16:00 Pulse Rate 106 H 75 76 Respiratory 21 14 11 L Rate Blood Pressure 108/60 108/60 100/45 Blood Pressure [Left] O2 Sat by Pulse 100 97 100 Oximetry 07/25/20 07/25/20 07/25/20 16:16 16:30 16:46 Pulse Rate 99 H 79 92 H Respiratory 13 13 14 Rate Blood Pressure 100/45 100/45 100/45 Blood Pressure [Left] O2 Sat by Pulse 99 95 97 Oximetry 07/25/20 07/25/20 07/25/20 17:00 17:16 17:30 Pulse Rate 93 H 76 104 H Respiratory 13 12 14 Rate Blood Pressure 106/47 106/47 106/47 Blood Pressure [Left] O2 Sat by Pulse 100 97 99 Oximetry 07/25/20 07/25/20 07/25/20 17:46 18:00 19:05 Pulse Rate 105 H 88 76 Respiratory 14 12 16 Rate Blood Pressure 106/47 96/46 Blood Pressure 100/64 [Left] O2 Sat by Pulse 82 L 98 Oximetry ED Medical Decision Making - Lab Data Result diagrams: 07/25/20 09:22 07/25/20 09:22 - Medical Decision Making Patient is 69 years old female with history of dementia and behavioral disturbances. Patient brought to the emergency room via EMS from a local [employer] station parking lot after patient was found wandering around by a stranger who called 911. Patient is calm and in no acute distress. Patient is refusing to answer questions. I reviewed patient medical history and patient was admitted to geriatric inpatient unit approximately 2 weeks ago for the same presentation. Labs reviewed and is unremarkable. Urine shows some ketones indicating possibility of dehydration. Patient received normal saline 1 L. Patient is medically cleared to be evaluated for inpatient psychiatric admission. Critical care attestation.: If time is entered above; I have spent that time in minutes in the direct care of this critically ill patient, excluding procedure time. ED Disposition Clinical Impression: Vascular dementia with behavioral disturbance, Altered mental state Disposition: DC-01 TO HOME OR SELFCARE Is pt being admited?: No Condition: Stable Instructions: Dementia (ED) Referrals: LORRAINE DE SANTIAGO MD [Primary Care Provider] - 3-5 Days
[2020-07-25 10:07] LABS: Basophils % (Auto) 0.3 % (0.0-1.8); Hematocrit 33.9 % (30.3-42.9); Hemoglobin 11.1 gm/dl (10.1-14.3); Lymphocytes # (Auto) 0.9 K/mm3 (1.2-5.4); Mean Corpuscular HGB Conc 33 % (30-34); Mean Corpuscular Volume 84 fl (79-97); Monocytes # (Auto) 0.5 K/mm3 (0.0-0.8); Monocytes % (Auto) 4.5 % (0.0-7.3); Platelet Count 197 K/mm3 (140-440); Red Blood Count 4.04 M/mm3 (3.65-5.03); Red Cell Distribution Width 14.4 % (13.2-15.2)
[2020-07-25 10:13] LABS: Blood Urea Nitrogen 23 mg/dL (7-17); Calcium 9.5 mg/dL (8.4-10.2); Hemolysis Index 10
[2020-07-25 10:18] LABS: BUN/Creatinine Ratio 46
[2020-07-25 10:31] LABS: Alanine Aminotransferase 14 units/L (7-56); Albumin 4.3 g/dL (3.9-5); Bilirubin,Direct < 0.2 mg/dL (0-0.2)
[2020-07-25 14:54] LABS: Bacteria,Urine 1+ /HPF (Negative); Bilirubin,Urine NEG (Negative); Blood,Urine NEG (Negative); Color,Urine Yellow (Yellow); Hyaline Casts,Urine 1 /LPF; Mucus,Urine FEW /HPF; Urobilinogen,Urine < 2.0 mg/dL (<2.0)
[2020-07-25 15:11] LABS: Amphetamine Screen,Urine Negative; Benzodiazepines Screen,Urine Negative; Cannabinoid Screen,Urine Negative; Cocaine Screen,Urine Negative; Methadone Screen,Urine Negative; Opiate Screen,Urine Negative
[2020-07-25] MEDS ORDERED: SODIUM CHLORIDE 0.9% 1000 ML 1,000 ML IV ONE (15:14)
[2020-07-25 19:07] VITALS: BP 100/64
== END 2020-07-25 19:05 | disposition home or self-care (01) ==
LOC: ED 06:18
DX: F01.51 Vascular dementia, unspecified severity, with behavioral disturbance (principal); R41.82 Altered mental status, unspecified; Z79.899 Other long term (current) drug therapy
CPT/HCPCS: 36415; 80048; 80076; 80307; 80320; 81001; 85025; 96360; G0480